=== PATIENT | male | born 1950 | race Caucasian/White ===

== ENCOUNTER 2019-01-08 05:25 | Inpatient (IN) | payer MEDICARE, OTHER ==
[~2019-01-08] VITALS: Ht 175.3 cm; Wt 82.5 kg
[~2019-01-08 05:25] MED LIST: AMAN100C7 PO; CARB1TAB25 PO; CARB1TAB43 PO; CLOP75TA PO; LISI5TAB7 PO; METO25TA91 PO; ROPI2TAB4 PO; ROSU40TA PO
[2019-01-08 05:58] VITALS: BP 164/101
[2019-01-08] MEDS ORDERED: LACTATED RINGERS 1,000 ML IV SCH (06:01)
[2019-01-08] MEDS ORDERED: LIDOCAINE 1%-EPI 1:100K, 30ML ONE (06:52)
[2019-01-08] MEDS ORDERED: BACITRACIN 50,000 UNIT ONE (06:53)
[2019-01-08] MEDS ORDERED: FENTANYL PF 250 MCG/5ML ONE (06:54)
[2019-01-08] MEDS ORDERED: MIDAZOLAM 1 MG/ML, 2ML ONE (06:54)
[2019-01-08] MEDS ORDERED: ACETAMINOPHEN 500 MG TABLET PO ONE (07:00)
[2019-01-08] MEDS ORDERED: GABAPENTIN 300 MG CAPSULE PO ONE (07:00)
[2019-01-08] MEDS ORDERED: THROMBIN 5,000 UNIT VIAL TP ONE (07:08)
[2019-01-08] MEDS ORDERED: VANCOMYCIN 1,000 MG ONE (07:08)
[2019-01-08] MEDS ORDERED: PHENYLEPHRINE 10 MG/ML ONE (07:39)
[2019-01-08] MEDS ORDERED: MORPHINE SULFATE 4 MG/ML, 1ML IVPush PRN (08:30)
[2019-01-08] MEDS ORDERED: PROMETHAZINE 25 MG/ML, 1ML IM PRN ×3 (08:30→11:30)
[2019-01-08] MEDS ORDERED: PROMETHAZINE 25 MG/ML, 1ML IV PRN (08:30)
[2019-01-08] MEDS ORDERED: PROMETHAZINE 12.5 MG SUPP PR PRN (08:30)
[2019-01-08] MEDS ORDERED: LABETALOL 5MG/ML, 20ML IV PRN (08:30)
[2019-01-08] MEDS ORDERED: hydrALAzine 20 MG/ML, 1ML IV PRN (08:30)
[2019-01-08] MEDS ORDERED: PROMETHAZINE 25 MG SUPP PR PRN (08:30)
[2019-01-08] MEDS ORDERED: MEPERIDINE/PF 25MG/0.5ML IVPush PRN (08:30)
[2019-01-08] MEDS ORDERED: CEFAZOLIN 1,000 MG ONE (08:44)
[2019-01-08] MEDS ORDERED: PROPOFOL 10 MG/ML, 20ML ONE (08:44)
[2019-01-08] MEDS ORDERED: ROCURONIUM 10MG/ML,5ML ONE (08:44)
[2019-01-08] MEDS ORDERED: NEOSTIGMINE 1 MG/ML, 10ML ONE (08:44)
[2019-01-08] MEDS ORDERED: GLYCOPYRROLATE 0.2MG/1ML, 5ML ONE (08:44)
[2019-01-08] MEDS ORDERED: FENTANYL PF 100 MCG/2ML ONE ×2 (09:20→09:49)
[2019-01-08] MEDS ORDERED: OXYcodone 5 MG/5 ML ORAL.SOL UDC ONE ×2 (09:20→09:59)
[2019-01-08] MEDS: FENTANYL PF 100 MCG/2ML IV PRN ×4 (09:22→10:02)
[2019-01-08] MEDS: OXYcodone 5 MG/5 ML ORAL.SOL UDC PO PRN ×2 (09:27→10:00)
[2019-01-08] MEDS ORDERED: CARBIDOPA/LEVODOPA 25 MG/250 MG TABLET PO ONE (09:30)
[2019-01-08] MEDS ORDERED: HYDROmorphone 1 MG/ML, 1ML ONE ×2 (09:59→10:19)
[2019-01-08] MEDS: HYDROmorphone 2 MG/ML, 1ML IVPush PRN ×3 (10:05→10:21)
[2019-01-08] MEDS ORDERED: DIPHENHYDRAMINE 50 MG/ML, 1ML IM PRN (11:30)
[2019-01-08] MEDS ORDERED: DIPHENHYDRAMINE 50 MG/ML, 1ML IVPush PRN (11:30)
[2019-01-08] MEDS ORDERED: MAGNESIUM HYDROXIDE 8%, 30ML UDC PO PRN (11:30)
[2019-01-08] MEDS ORDERED: morphine SULFATE 10 MG/ML, 1ML IV PRN (11:30)
[2019-01-08] MEDS ORDERED: BISACODYL 10 MG SUPP PR PRN (11:30)
[2019-01-08] MEDS ORDERED: DIPHENHYDRAMINE 50 MG CAPSULE PO PRN (11:30)
[2019-01-08] MEDS ORDERED: METHOCARBAMOL 750 MG TABLET PO PRN (11:30)
[2019-01-08] MEDS ORDERED: CARBIDOPA/LEVODOPA 25 MG/250 MG TABLET PO SCH ×3 (12:00→16:00)
[2019-01-08] MEDS: D5%-0.9% NACL+KCL 20MEQ 1,000 ML IV SCH (12:06)
[2019-01-08] MEDS: ROPINIROLE 1MG TABLET PO SCH ×2 (12:41→14:10)
[2019-01-08] MEDS: CARBIDOPA/LEVODOPA 25 MG/250 MG TABLET PO SCH ×2 (12:42→14:10)
[2019-01-08 13:30] VITALS: BP 115/72
[2019-01-08] MEDS: CEFAZOLIN PMX 1GM/50ML 50 ML IVPB SCH (15:59)
[2019-01-08] MEDS ORDERED: ROPINIROLE 1MG TABLET PO SCH (16:00)
[2019-01-08] MEDS ORDERED: CARBIDOPA/LEVODOPA CR 25 MG/100 MG TABLET PO SCH (18:00)
[2019-01-08] MEDS: CARBIDOPA/LEVODOPA CR 25 MG/100 MG TABLET HOMEMEDPO SCH ×2 (18:00→19:22)
[2019-01-08] MEDS: HYDROcodone/APAP 5/325 TABLET PO PRN ×3 (18:31→23:06)
[2019-01-08 19:47] VITALS: BP 120/70
[2019-01-08] MEDS: ATORVASTATIN 80 MG TABLET PO SCH (21:56)
[2019-01-09] MEDS: CEFAZOLIN PMX 1GM/50ML 50 ML IVPB SCH (00:09)
[2019-01-09] MEDS: D5%-0.9% NACL+KCL 20MEQ 1,000 ML IV SCH ×3 (00:09→17:30)
[2019-01-09 02:00] VITALS: BP 129/73
[2019-01-09 05:23] LABS: BASOPHILS # (AUTO) 0.02 x10^3/uL (0-0.1); BASOPHILS % (AUTO) 0 % (0-1); EOSINOPHILS # (AUTO) 0.05 x10^3/uL (0-0.4); EOSINOPHILS % (AUTO) 1 % (1-7); LYMPHOCYTES # (AUTO) 0.57 x10^3/uL (1-3.4); LYMPHOCYTES % (AUTO) 11 % (22-44); MD NO; MEAN CORPUSCULAR HEMOGLOBIN 31.1 pg (27.5-34.5); MEAN CORPUSCULAR HGB CONC 33.7 g/dL (33.2-36.2); MEAN CORPUSCULAR VOLUME 92.3 fL (81-97); MEAN PLATELET VOLUME 8.9 fL (7.4-10.4); MONOCYTES # (AUTO) 0.64 x10^3/uL (0.2-0.8); MONOCYTES % (AUTO) 12 % (2-9); NEUTROPHILS # (AUTO) 4.08 x10^3/uL (1.8-6.8); NEUTROPHILS % (AUTO) 76 % (42-75); PLATELET COUNT 201 x10^3/uL (130-400); RED BLOOD COUNT 3.32 x10^6/uL (4.38-5.82); RED CELL DISTRIBUTION WIDTH 14.5 % (9.4-14.8)
[2019-01-09 05:33] LABS: ALBUMIN 3.2 g/dL (3.4-5.0); ANION GAP 5 mmol/L (5-15); CHLORIDE 105 mmol/L (98-107)
[2019-01-09 05:39] LABS: ALANINE AMINOTRANSFERASE 6 U/L (12-78); ALKALINE PHOSPHATASE 85 U/L (45-117); BILIRUBIN,TOTAL 0.7 mg/dL (0.2-1.0); CALCIUM 8.4 mg/dL (8.5-10.1); CREATININE 1.16 mg/dL (0.7-1.3); TOTAL PROTEIN 6.3 g/dL (6.4-8.2)
[2019-01-09] MEDS ORDERED: METOPROLOL SUCCINATE 25 MG TAB.ER.24H PO SCH (06:00)
[2019-01-09] MEDS: METOPROLOL SUCCINATE 25 MG TAB.ER.24H PO SCH (07:43)
[2019-01-09] MEDS: SENNA/DOCUSATE TABLET PO SCH (08:09)
[2019-01-09] MEDS: AMANTADINE 100 MG CAPSULE PO SCH (08:09)
[2019-01-09] MEDS: CARBIDOPA/LEVODOPA 25 MG/250 MG TABLET HOMEMEDPO SCH ×5 (08:10→16:00)
[2019-01-09] MEDS: LISINOPRIL 5 MG TABLET PO SCH (08:10)
[2019-01-09] MEDS: ROPINIROLE 1MG TABLET HOMEMEDPO SCH ×6 (08:10→17:58)
[2019-01-09] MEDS: HYDROcodone/APAP 10/325 MG TABLET PO PRN ×4 (08:13→22:31)
[2019-01-09] MEDS ORDERED: LISINOPRIL 5 MG TABLET PO SCH (09:00)
[2019-01-09] MEDS: ENOXAPARIN 30 MG/0.3 ML SQ SCH ×2 (14:20→22:50)
[2019-01-09] MEDS: METOCLOPRAMIDE 5 MG/ML, 2ML IV SCH ×2 (14:20→17:56)
[2019-01-09 14:25] VITALS: BP 105/67
[2019-01-09] MEDS: ONDANSETRON 2MG/ML, 2ML IV PRN ×2 (16:59→22:34)
[2019-01-09] MEDS: CARBIDOPA/LEVODOPA CR 25 MG/100 MG TABLET HOMEMEDPO SCH (17:57)
[2019-01-09 19:51] VITALS: BP 135/75
[2019-01-09] MEDS: ATORVASTATIN 80 MG TABLET PO SCH (22:31)
[2019-01-10] MEDS: METOCLOPRAMIDE 5 MG/ML, 2ML IV SCH ×4 (00:04→15:55)
[2019-01-10 01:51] VITALS: BP 174/88
[2019-01-10] MEDS: D5%-0.9% NACL+KCL 20MEQ 1,000 ML IV SCH ×3 (03:30→23:30)
[2019-01-10 06:47] LABS: BASOPHILS # (AUTO) 0.01 x10^3/uL (0-0.1); BASOPHILS % (AUTO) 0 % (0-1); EOSINOPHILS # (AUTO) 0.07 x10^3/uL (0-0.4); EOSINOPHILS % (AUTO) 1 % (1-7); LYMPHOCYTES # (AUTO) 0.87 x10^3/uL (1-3.4); LYMPHOCYTES % (AUTO) 13 % (22-44); MD NO; MEAN CORPUSCULAR HEMOGLOBIN 30.3 pg (27.5-34.5); MEAN CORPUSCULAR HGB CONC 32.7 g/dL (33.2-36.2); MEAN CORPUSCULAR VOLUME 92.6 fL (81-97); MONOCYTES # (AUTO) 0.83 x10^3/uL (0.2-0.8); MONOCYTES % (AUTO) 13 % (2-9); NEUTROPHILS # (AUTO) 4.89 x10^3/uL (1.8-6.8); NEUTROPHILS % (AUTO) 73 % (42-75); PLATELET COUNT 223 x10^3/uL (130-400); RED BLOOD COUNT 3.78 x10^6/uL (4.38-5.82); RED CELL DISTRIBUTION WIDTH 14.2 % (9.4-14.8)
[2019-01-10 06:52] LABS: ANION GAP 7 mmol/L (5-15); CALCIUM 9.2 mg/dL (8.5-10.1); CHLORIDE 102 mmol/L (98-107)
[2019-01-10 06:53] LABS: CREATININE 1.11 mg/dL (0.7-1.3)
[2019-01-10] MEDS: METOPROLOL SUCCINATE 25 MG TAB.ER.24H PO SCH (07:17)
[2019-01-10 07:53] VITALS: BP 190/94
[2019-01-10] MEDS: CARBIDOPA/LEVODOPA 25 MG/250 MG TABLET HOMEMEDPO SCH ×5 (07:56→15:55)
[2019-01-10 09:16] VITALS: BP 153/94
[2019-01-10] MEDS: AMANTADINE 100 MG CAPSULE PO SCH (09:18)
[2019-01-10] MEDS: SENNA/DOCUSATE TABLET PO SCH (09:18)
[2019-01-10] MEDS: LISINOPRIL 5 MG TABLET PO SCH (09:18)
[2019-01-10] MEDS: ENOXAPARIN 30 MG/0.3 ML SQ SCH ×2 (09:56→22:59)
[2019-01-10] MEDS: ROPINIROLE 1MG TABLET HOMEMEDPO SCH ×4 (09:56→15:55)
[2019-01-10] MEDS: ONDANSETRON 2MG/ML, 2ML IV PRN (12:02)
[2019-01-10 12:49] VITALS: BP 127/78
[2019-01-10] MEDS: HYDROcodone/APAP 10/325 MG TABLET PO PRN ×2 (19:14→22:59)
[2019-01-10] MEDS: CARBIDOPA/LEVODOPA CR 25 MG/100 MG TABLET HOMEMEDPO SCH (19:18)
[2019-01-10 19:21] VITALS: BP 133/72
[2019-01-10] MEDS: ATORVASTATIN 80 MG TABLET PO SCH (22:59)
[2019-01-11] MEDS: METOCLOPRAMIDE 5 MG/ML, 2ML IV SCH ×3 (00:30→11:50)
[2019-01-11 00:52] VITALS: BP 135/87
[2019-01-11 05:44] LABS: BASOPHILS # (AUTO) 0.02 x10^3/uL (0-0.1); BASOPHILS % (AUTO) 0 % (0-1); EOSINOPHILS # (AUTO) 0.16 x10^3/uL (0-0.4); EOSINOPHILS % (AUTO) 3 % (1-7); LYMPHOCYTES % (AUTO) 17 % (22-44); MD NO; MEAN CORPUSCULAR HEMOGLOBIN 31.1 pg (27.5-34.5); MEAN CORPUSCULAR HGB CONC 33.5 g/dL (33.2-36.2); MEAN CORPUSCULAR VOLUME 92.7 fL (81-97); MEAN PLATELET VOLUME 9.4 fL (7.4-10.4); MONOCYTES % (AUTO) 14 % (2-9); NEUTROPHILS # (AUTO) 4.27 x10^3/uL (1.8-6.8); NEUTROPHILS % (AUTO) 66 % (42-75); PLATELET COUNT 235 x10^3/uL (130-400); RED BLOOD COUNT 3.68 x10^6/uL (4.38-5.82); RED CELL DISTRIBUTION WIDTH 14.3 % (9.4-14.8)
[2019-01-11 05:48] LABS: ANION GAP 5 mmol/L (5-15); CALCIUM 8.9 mg/dL (8.5-10.1); CHLORIDE 102 mmol/L (98-107); CREATININE 1.15 mg/dL (0.7-1.3)
[2019-01-11 07:21] VITALS: BP 174/94
[2019-01-11] MEDS: D5%-0.9% NACL+KCL 20MEQ 1,000 ML IV SCH (07:22)
[2019-01-11] MEDS: AMANTADINE 100 MG CAPSULE PO SCH (07:57)
[2019-01-11] MEDS: SENNA/DOCUSATE TABLET PO SCH (07:57)
[2019-01-11] MEDS: METOPROLOL SUCCINATE 25 MG TAB.ER.24H PO SCH (07:57)
[2019-01-11] MEDS: LISINOPRIL 5 MG TABLET PO SCH (07:57)
[2019-01-11] MEDS: ROPINIROLE 1MG TABLET HOMEMEDPO SCH ×3 (07:58→11:50)
[2019-01-11] MEDS: CARBIDOPA/LEVODOPA 25 MG/250 MG TABLET HOMEMEDPO SCH ×3 (07:58→11:50)
[2019-01-11] MEDS: ENOXAPARIN 30 MG/0.3 ML SQ SCH (09:54)
[2019-01-11] MEDS ORDERED: HYDR-3307 PO (11:46)
[2019-01-11] MEDS ORDERED: ENOX40SY4 SQ (11:47)
== END 2019-01-11 12:30 | disposition home or self-care (01) | DRG 460 ==
LOC: ORIP 05:25 → 4NOR 10:45 → DCLOUNGE 01-11 12:15
PROVIDERS: ADMIT Orthopaedic Surgery Orthopaedic Surgery of the Spine; ATTEND Orthopaedic Surgery Orthopaedic Surgery of the Spine
PROC: 0SB40ZZ Excision of Lumbosacral Disc, Open Approach (ICD-10-PCS; 2019-01-08)
PROC: 0SG30A0 Fusion of Lumbosacral Joint with Interbody Fusion Device, Anterior Approach, Anterior Column, Open Approach (ICD-10-PCS; principal; 2019-01-08 07:30)
DX: M48.07 Spinal stenosis, lumbosacral region (principal); E44.1 Mild protein-calorie malnutrition; D63.8 Anemia in other chronic diseases classified elsewhere; E78.5 Hyperlipidemia, unspecified; G20 Parkinson's disease; G89.29 Other chronic pain; I10 Essential (primary) hypertension; I25.10 Atherosclerotic heart disease of native coronary artery without angina pectoris; M43.17 Spondylolisthesis, lumbosacral region; M54.17 Radiculopathy, lumbosacral region; Z95.5 Presence of coronary angioplasty implant and graft
CPT/HCPCS: 36415; 72100; 74018; 80048; 80053; 85025; 93306; C1713; C1776; G0378; J0690; J1170; J1650; J2250; J2405; J2704; J2710; J3010; J3370; J3490; C1762; J0360; J2270; J2370; J3480; J7120

== ENCOUNTER 2019-01-18 05:50 | Inpatient (IN) | payer MEDICARE, OTHER ==
[~2019-01-18] VITALS: Ht 175.3 cm; Wt 81.3 kg
[~2019-01-18 05:50] MED LIST changes: +ENOX40SY4 SQ; +FENTANYL PF 100 MCG/2ML IV PRN; +HYDR-3307 PO; +HYDROmorphone 2 MG/ML, 1ML IVPush PRN; +LABETALOL 5MG/ML, 20ML IV PRN; +MEPERIDINE/PF 25MG/0.5ML IVPush PRN; +MORPHINE SULFATE 4 MG/ML, 1ML IVPush PRN; +OXYcodone 5 MG/5 ML ORAL.SOL UDC PO PRN; +PROMETHAZINE 12.5 MG SUPP PR PRN; +PROMETHAZINE 25 MG SUPP PR PRN; +PROMETHAZINE 25 MG/ML, 1ML IM PRN; +PROMETHAZINE 25 MG/ML, 1ML IV PRN; +hydrALAzine 20 MG/ML, 1ML IV PRN
[2019-01-18 06:41] VITALS: BP 146/95
[2019-01-18] MEDS ORDERED: LACTATED RINGERS 1,000 ML IV SCH (06:43)
[2019-01-18] MEDS ORDERED: LIDOCAINE/PF 0.5% ,50ML ONE (06:58)
[2019-01-18] MEDS ORDERED: VANCOMYCIN 1,000 MG ONE (06:58)
[2019-01-18] MEDS ORDERED: THROMBIN 5,000 UNIT VIAL TP ONE (06:58)
[2019-01-18] MEDS ORDERED: EPINEPHRINE 1 MG/ML, 1ML ONE (06:58)
[2019-01-18] MEDS ORDERED: FENTANYL PF 250 MCG/5ML ONE (08:05)
[2019-01-18] MEDS ORDERED: BUPIVACAINE/PF 0.25% ONE (08:12)
[2019-01-18] MEDS ORDERED: LABETALOL 5MG/ML, 20ML IV PRN (08:30)
[2019-01-18] MEDS ORDERED: ACETAMINOPHEN 325 MG TABLET PO PRN (08:30)
[2019-01-18] MEDS ORDERED: DIAZEPAM 5 MG/ML, 2ML IVPush PRN (08:30)
[2019-01-18] MEDS ORDERED: hydrALAzine 20 MG/ML, 1ML IV PRN (08:30)
[2019-01-18] MEDS ORDERED: KETOROLAC 30 MG/1 ML IV PRN (08:30)
[2019-01-18] MEDS ORDERED: MEPERIDINE/PF 25MG/0.5ML IVPush PRN (08:30)
[2019-01-18] MEDS ORDERED: ALBUTEROL SULFATE 2.5 MG/3 ML NPPB PRN (08:30)
[2019-01-18] MEDS ORDERED: OXYcodone 5 MG/5 ML ORAL.SOL UDC PO PRN (08:30)
[2019-01-18] MEDS ORDERED: ROCURONIUM 10 MG/ML,10ML ONE (09:09)
[2019-01-18] MEDS ORDERED: ONDANSETRON 2MG/ML, 2ML ONE (09:09)
[2019-01-18] MEDS ORDERED: PROPOFOL 10 MG/ML, 20ML ONE (09:09)
[2019-01-18] MEDS ORDERED: CEFAZOLIN 1,000 MG ONE (09:09)
[2019-01-18] MEDS ORDERED: DEXAMETHASONE 4 MG/ML, 1ML ONE (09:09)
[2019-01-18] MEDS ORDERED: EPHEDRINE 50 MG/ML, 1ML ONE (09:09)
[2019-01-18] MEDS ORDERED: BUPIVACAINE/PF 0.25% INFIL ONE (10:11)
[2019-01-18] MEDS ORDERED: VANCOMYCIN 1,000 MG IM ONE (10:11)
[2019-01-18] MEDS ORDERED: FENTANYL PF 100 MCG/2ML ONE ×2 (12:11→12:41)
[2019-01-18] MEDS ORDERED: OXYcodone 5 MG/5 ML ORAL.SOL UDC ONE (12:11)
[2019-01-18] MEDS: FENTANYL PF 100 MCG/2ML IV PRN ×3 (12:15→12:47)
[2019-01-18] MEDS ORDERED: CARBIDOPA/LEVODOPA 25 MG/250 MG TABLET PO ONE (12:30)
[2019-01-18] MEDS ORDERED: METHOCARBAMOL 1,000 MG in DEXTROSE 5% 100 ML IV ONE ×2 (12:30→14:30)
[2019-01-18] MEDS ORDERED: HYDROmorphone 1 MG/ML, 1ML AMP ONE ×2 (12:41→12:50)
[2019-01-18] MEDS: HYDROmorphone 2 MG/ML, 1ML IVPush PRN ×2 (12:45→12:54)
[2019-01-18] MEDS ORDERED: KETOROLAC 30 MG/1 ML ONE (12:49)
[2019-01-18] MEDS ORDERED: BISACODYL 10 MG SUPP PR PRN (14:30)
[2019-01-18] MEDS ORDERED: METHOCARBAMOL 750 MG TABLET PO PRN (14:30)
[2019-01-18] MEDS ORDERED: HYDROcodone/APAP 5/325 TABLET PO PRN (14:30)
[2019-01-18] MEDS ORDERED: MAGNESIUM HYDROXIDE 8%, 30ML UDC PO PRN (14:30)
[2019-01-18] MEDS ORDERED: ONDANSETRON 2MG/ML, 2ML IV PRN (14:30)
[2019-01-18] MEDS ORDERED: morphine SULFATE 10 MG/ML, 1ML IV PRN (14:30)
[2019-01-18] MEDS ORDERED: PROMETHAZINE 25 MG/ML, 1ML IM PRN (14:30)
[2019-01-18] MEDS: D5%-0.9% NACL+KCL 20MEQ 1,000 ML IV SCH (15:55)
[2019-01-18] MEDS: CARBIDOPA/LEVODOPA 25 MG/250 MG TABLET PO SCH (16:00)
[2019-01-18] MEDS: METHOCARBAMOL 750 MG in DEXTROSE 5% 100 ML IV SCH (16:34)
[2019-01-18] MEDS: CEFAZOLIN PMX 1GM/50ML 50 ML IVPB SCH (17:41)
[2019-01-18] MEDS: CARBIDOPA/LEVODOPA CR 25 MG/100 MG TABLET PO SCH (17:53)
[2019-01-18] MEDS ORDERED: ROPINIROLE 1MG TABLET PO SCH (18:00)
[2019-01-18] MEDS: HYDROcodone/APAP 10/325 MG TABLET PO PRN ×2 (19:21→23:40)
[2019-01-18] MEDS: ATORVASTATIN 80 MG TABLET PO SCH (20:47)
[2019-01-18 20:56] VITALS: BP 114/60
[2019-01-19 00:06] VITALS: BP 133/75
[2019-01-19] MEDS: D5%-0.9% NACL+KCL 20MEQ 1,000 ML IV SCH ×3 (01:19→20:30)
[2019-01-19] MEDS: CEFAZOLIN PMX 1GM/50ML 50 ML IVPB SCH (01:20)
[2019-01-19 04:01] VITALS: BP 130/75
[2019-01-19] MEDS: METHOCARBAMOL 750 MG in DEXTROSE 5% 100 ML IV SCH ×3 (04:04→20:42)
[2019-01-19] MEDS: HYDROcodone/APAP 10/325 MG TABLET PO PRN ×2 (04:04→16:52)
[2019-01-19 05:17] LABS: BASOPHILS # (AUTO) 0.02 x10^3/uL (0-0.1); BASOPHILS % (AUTO) 0 % (0-1); EOSINOPHILS # (AUTO) 0.01 x10^3/uL (0-0.4); EOSINOPHILS % (AUTO) 0 % (1-7); LYMPHOCYTES # (AUTO) 0.58 x10^3/uL (1-3.4); LYMPHOCYTES % (AUTO) 6 % (22-44); MD NO; MEAN CORPUSCULAR HEMOGLOBIN 30.9 pg (27.5-34.5); MEAN CORPUSCULAR HGB CONC 33.7 g/dL (33.2-36.2); MEAN CORPUSCULAR VOLUME 91.8 fL (81-97); MEAN PLATELET VOLUME 8.9 fL (7.4-10.4); MONOCYTES % (AUTO) 8 % (2-9); NEUTROPHILS # (AUTO) 8.91 x10^3/uL (1.8-6.8); NEUTROPHILS % (AUTO) 87 % (42-75); PLATELET COUNT 304 x10^3/uL (130-400); RED BLOOD COUNT 2.88 x10^6/uL (4.38-5.82); RED CELL DISTRIBUTION WIDTH 13.6 % (9.4-14.8)
[2019-01-19 05:19] LABS: ALANINE AMINOTRANSFERASE 29 U/L (12-78); ANION GAP 6 mmol/L (5-15); CALCIUM 8.3 mg/dL (8.5-10.1); CHLORIDE 104 mmol/L (98-107); CREATININE 1.11 mg/dL (0.7-1.3)
[2019-01-19 05:21] LABS: ALKALINE PHOSPHATASE 94 U/L (45-117); BILIRUBIN,TOTAL 0.4 mg/dL (0.2-1.0); TOTAL PROTEIN 6.1 g/dL (6.4-8.2)
[2019-01-19 07:04] VITALS: BP 127/75
[2019-01-19] MEDS ORDERED: ROPINIROLE 1MG TABLET PO SCH (08:00)
[2019-01-19] MEDS: CARBIDOPA/LEVODOPA 25 MG/250 MG TABLET PO SCH ×5 (08:00→16:00)
[2019-01-19] MEDS: ROPINIROLE 1MG TABLET PO SCH ×5 (08:00→16:00)
[2019-01-19] MEDS: SENNA/DOCUSATE TABLET PO SCH (08:08)
[2019-01-19] MEDS: AMANTADINE 100 MG CAPSULE PO SCH (08:09)
[2019-01-19] MEDS: METOPROLOL SUCCINATE 25 MG TAB.ER.24H PO SCH (08:09)
[2019-01-19] MEDS: LISINOPRIL 5 MG TABLET PO SCH (08:09)
[2019-01-19] MEDS ORDERED: METOPROLOL SUCCINATE 25 MG TAB.ER.24H PO SCH (09:00)
[2019-01-19] MEDS ORDERED: LISINOPRIL 5 MG TABLET PO SCH (09:00)
[2019-01-19] MEDS: GABAPENTIN 100 MG CAPSULE PO PRN (11:58)
[2019-01-19] MEDS ORDERED: CALCIUM CARBONATE 500 MG TABLET PO PRN (12:30)
[2019-01-19] MEDS: CALCIUM CARBONATE 500 MG TAB.CHEW PO PRN ×3 (13:56→18:00)
[2019-01-19 16:12] VITALS: BP 148/86
[2019-01-19] MEDS: CARBIDOPA/LEVODOPA CR 25 MG/100 MG TABLET PO SCH (17:58)
[2019-01-19 19:27] VITALS: BP 153/86
[2019-01-19] MEDS: ATORVASTATIN 80 MG TABLET PO SCH (20:42)
[2019-01-20] MEDS: HYDROcodone/APAP 10/325 MG TABLET PO PRN (00:40)
[2019-01-20 01:02] VITALS: BP 165/89
[2019-01-20] MEDS: METHOCARBAMOL 750 MG in DEXTROSE 5% 100 ML IV SCH (04:31)
[2019-01-20] MEDS: D5%-0.9% NACL+KCL 20MEQ 1,000 ML IV SCH (04:39)
[2019-01-20 05:45] LABS: BASOPHILS # (AUTO) 0.04 x10^3/uL (0-0.1); BASOPHILS % (AUTO) 1 % (0-1); EOSINOPHILS # (AUTO) 0.16 x10^3/uL (0-0.4); EOSINOPHILS % (AUTO) 2 % (1-7); LYMPHOCYTES # (AUTO) 1.06 x10^3/uL (1-3.4); LYMPHOCYTES % (AUTO) 14 % (22-44); MD NO; MEAN CORPUSCULAR HEMOGLOBIN 31.2 pg (27.5-34.5); MEAN CORPUSCULAR HGB CONC 33.9 g/dL (33.2-36.2); MEAN PLATELET VOLUME 8.9 fL (7.4-10.4); MONOCYTES % (AUTO) 9 % (2-9); NEUTROPHILS % (AUTO) 75 % (42-75); PLATELET COUNT 324 x10^3/uL (130-400); RED BLOOD COUNT 2.92 x10^6/uL (4.38-5.82); RED CELL DISTRIBUTION WIDTH 14.1 % (9.4-14.8)
[2019-01-20 05:49] LABS: CHLORIDE 105 mmol/L (98-107)
[2019-01-20 05:54] LABS: ANION GAP 5 mmol/L (5-15); CALCIUM 8.3 mg/dL (8.5-10.1); CREATININE 0.96 mg/dL (0.7-1.3)
[2019-01-20 07:51] VITALS: BP 135/84
[2019-01-20] MEDS: CARBIDOPA/LEVODOPA 25 MG/250 MG TABLET PO SCH ×2 (07:58→10:00)
[2019-01-20] MEDS: ROPINIROLE 1MG TABLET PO SCH ×2 (07:58→10:00)
[2019-01-20] MEDS: METOPROLOL SUCCINATE 25 MG TAB.ER.24H PO SCH (07:59)
[2019-01-20] MEDS: LISINOPRIL 5 MG TABLET PO SCH (07:59)
[2019-01-20] MEDS: SENNA/DOCUSATE TABLET PO SCH (07:59)
[2019-01-20] MEDS: AMANTADINE 100 MG CAPSULE PO SCH (07:59)
[2019-01-20] MEDS: GABAPENTIN 100 MG CAPSULE PO PRN (08:03)
[2019-01-20] MEDS ORDERED: METHOCARBAMOL 750 MG TABLET PO SCH (13:30)
[2019-01-20] MEDS ORDERED: METHOCARBAMOL 750 MG TABLET PO PRN (14:30)
== END 2019-01-20 11:30 | disposition home or self-care (01) | DRG 460 ==
LOC: ORIP 05:50 → 4NOR 13:44
PROVIDERS: ADMIT Orthopaedic Surgery Orthopaedic Surgery of the Spine; ATTEND Orthopaedic Surgery Orthopaedic Surgery of the Spine
PROC: 0SG3071 Fusion of Lumbosacral Joint with Autologous Tissue Substitute, Posterior Approach, Posterior Column, Open Approach (ICD-10-PCS; principal; 2019-01-18 08:00)
DX: M48.07 Spinal stenosis, lumbosacral region (principal); R65.10 Systemic inflammatory response syndrome (SIRS) of non-infectious origin without acute organ dysfunction; M43.17 Spondylolisthesis, lumbosacral region; D63.8 Anemia in other chronic diseases classified elsewhere; E78.5 Hyperlipidemia, unspecified; M54.17 Radiculopathy, lumbosacral region; G20 Parkinson's disease; I08.0 Rheumatic disorders of both mitral and aortic valves; I10 Essential (primary) hypertension; I25.10 Atherosclerotic heart disease of native coronary artery without angina pectoris; Z79.02 Long term (current) use of antithrombotics/antiplatelets; Z95.5 Presence of coronary angioplasty implant and graft
CPT/HCPCS: 36415; 72100; 80048; 80053; 85025; C1713; G0378; J0171; J0690; J1100; J1170; J1885; J2001; J2405; J2704; J3010; J3370; J3490; J2800; J3480; J7120